=== PATIENT | female | born 1955 | race Caucasian/White ===

== ENCOUNTER 2022-04-29 06:09 | Day surgery (SDC) | payer MEDICARE ==
[2022-04-29] MEDS ORDERED: Sodium Chloride 0.9% 1,000 ML IV SCH (06:45)
[2022-04-29] MEDS ORDERED: fentaNYL 100 MCG/2 ML SDV ONE (07:02)
[2022-04-29] MEDS ORDERED: Midazolam 1 MG/ML 2 ML SDV ONE (07:02)
[2022-04-29] MEDS ORDERED: Propofol 200 MG/20 ML SDV ONE (07:02)
== END 2022-04-29 08:42 | disposition home or self-care (01) ==
LOC: JP.SDS 06:09
PROVIDERS: ATTEND Internal Medicine
DX: R19.5 Other fecal abnormalities (principal)
CPT/HCPCS: 45378; J2250; J2704; J3010; J7030